=== PATIENT | female | born 1930 | race Caucasian/White ===

== ENCOUNTER 2017-01-02 11:49 | Inpatient (IN) | payer MEDICARE, BC ==
[2017-01-02] MEDS ORDERED: HYDROmorphone 0.5 MG/0.5 ML Syringe IVPUSH ONE (13:32)
[2017-01-02] MEDS ORDERED: Sodium Chloride 0.9% 10 ML Syringe FLUSH PRN (13:32)
--- NOTE | 2017-01-02 13:36 | EDM.PDOC ---
ED HPI LOWER BACK PAIN/INJURY - General Chief Complaint: Back Pain or Injury Stated Complaint: [facility] Time Seen by Provider: 01/02/17 13:33 Source: Reports: Patient History Limitations: Reports: No limitations - History of Present Illness INITIAL COMMENTS - FREE TEXT/NARRATIVE: pt arrived with a hisrory in the past 3 days of increased low back pain and weakness in the leg. She has fallen twice and with the last fall she hit hr knee and she has pain in the knee. Sh has also noted swelling in the left leg and she has tenderness in the left calf. Timing/Duration: Reports: Day(s):, Getting worse Place: home Associated Symptoms: Reports: Difficulty walking - Related Data Allergies/ADRs: Allergies Allergy/AdvReac Type Severity Reaction Status Date / Time Penicillins Allergy Rash Verified 10/11/16 10:03 aspirin AdvReac Nausea and Verified 10/11/16 10:03 Vomiting Home Meds: Home Meds FLUoxetine HCl [Fluoxetine HCl] 20 mg PO DAILY 12/24/13 [History] Gabapentin 300 mg PO BID 12/24/13 [History] Hydrocodone/Acetaminophen [Hydrocodon-Acetaminophn 10-325] 1 tab PO TID [History] Ibuprofen [Advil] 400 mg PO BID PRN 07/22/15 [History] Leflunomide [Arava] 10 mg PO DAILY 09/27/15 [History] tiZANidine [Zanaflex] 4 mg PO Q8HR PRN 09/27/15 [History] Calcium Carbonate [Calcium] 600 mg PO DAILY 03/08/16 [History] Multivitamin [Multi-Vitamin Daily] 1 each PO DAILY 03/08/16 [History] Alendronate Sodium [Alendronate] 70 mg PO WEEKLY 10/25/16 [History] Past Medical History HEENT History: Reports: Cataract Gastrointestinal History: Reports: Colon polyp, Hemorrhoids [employer]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: Musculoskeletal History: Reports: Arthritis, Back pain, chronic, Fracture, Neck pain, chronic, Osteoarthritis, Other (see below) Other Musculoskeletal History: na Neurological History: Reports: None Psychiatric History: Reports: Anxiety Hematologic History: Reports: B12 deficiency, Folic acid Oncologic (Cancer) History: Reports: Basal cell carcinoma Dermatologic History: Reports: Cellulitis - Infectious Disease History Infectious Disease History: Reports: Chicken pox, Measles - Past Surgical History HEENT Surgical History: Reports: Cataract surgery GI Surgical History: Reports: Appendectomy, Colonoscopy, Polypectomy Neurological Surgical History: Reports: Laminectomy Musculoskeletal Surgical History: Reports: None Oncologic Surgical History: Reports: None Dermatological Surgical History: Reports: Skin biopsy Social & Family History - Family History HEENT: Reports: Glaucoma, Macular degeneration Cardiac: Reports: Heart failure, High cholesterol, [place] Respiratory: Reports: Asthma : Reports: Renal disease/insufficiency OBGYN: Reports: Other (see below) Other OBGYN Family History: ovarian cyst Musculoskeletal: Reports: Arthritis Oncologic: Reports: Skin - Tobacco Use Smoking Status *Q: Never Smoker Years of Tobacco use: 30 Used Tobacco, but Quit: Yes Month Tobacco Last Used: 1994 Second Hand Smoke Exposure: No - Caffeine Use Caffeine Use: Reports: Coffee - Alcohol Use Days Per Week of Alcohol Use: 1 Number of Drinks Per Day: 1 Total Drinks Per Week: 1 - Recreational Drug Use Recreational Drug Use: No ED ROS GENERAL - Review of Systems Review Of Systems: See Below Constitutional: Reports: no symptoms HEENT: Reports: No symptoms Respiratory: Reports: No Symptoms Cardiovascular: Reports: No symptoms Endocrine: Reports: no symptoms GI/Abdominal: Reports: No symptoms : Reports: no symptoms Musculoskeletal: Reports: other ( pain and weakness in the left leg. ) Skin: Reports: no symptoms ED EXAM,LOWER BACK PAIN/INJURY - Physical Exam Exam: See Below Text/Narrative:: pt arrived complaining of weakness in the left leg. She alegria a painful knee where she hit it. She has swelling in the left leg. Exam Limited By: No limitations General Appearance: alert, anxious, mild distress Ears: normal TMs Nose: normal inspection Throat/Mouth: Normal inspection Head: atraumatic Neck: normal inspection Respiratory/Chest: no respiratory distress Cardiovascular: regular rate, rhythm GI/Abdominal: soft, non tender (Female) Exam: Deferred Rectal (Female) Exam: Deferred Back Exam: normal inspection Extremities: other (pt is haing problems lifting her left leg. She is able to push against you and his able to lift her foot. She has dfinite swelling in the left leg. She is tender in the calf of the left leg. She has a bruise on the left knee and she is tender in the knee. ) Neurological: alert Psychiatric: normal affect Course - Vital Signs Last Recorded V/S: Last Vital Signs Temp 36.3 C 03/22/17 07:10 Pulse 108 H 01/03/17 07:10 Resp 20 01/03/17 07:10 BP 120/70 01/03/17 07:10 Pulse Ox 96 01/03/17 07:10 - Orders/Labs/Meds Orders: Medication Orders Acetaminophen/Hydrocodone Bitart ([place] 325-5 Mg) 1 tab PO Q4H PRN PRN Reason: Pain (moderate 4-6) Last Admin: 01/02/17 16:19 Dose: 1 tab Acetaminophen/Hydrocodone Bitart ([place] 325-10 Mg) 2 tab PO BEDTIME PRN PRN Reason: Pain Last Admin: 01/02/17 21:26 Dose: 2 tab Dexamethasone (Dexamethasone) 8 mg IVPUSH Q6H RHYS Last Admin: 01/03/17 03:42 Dose: 8 mg Admin: 01/02/17 21:27 Dose: 8 mg Admin: 01/02/17 16:31 Dose: 8 mg Gadoteridol (Prohance) 15 ml IV .A DIRECTED PRN PRN Reason: RADIOLOGY EXAM Stop: 01/03/17 14:44 Last Admin: 01/02/17 15:15 Dose: 15 ml Sodium Chloride (Saline Flush) 10 ml FLUSH ASDIRECTED PRN PRN Reason: Keep Vein Open Last Admin: 01/02/17 14:35 Dose: 10 ml Meds: Medications Generic Name Dose Route Start Last Admin Trade Name Freq PRN Reason Stop Dose Admin Acetaminophen/Hydrocodone Bitart 1 tab 01/02/17 13:37 01/02/17 16:19 [place] 325-5 Mg PO 1 tab Q4H PRN Administration Pain (moderate 4-6) Acetaminophen/Hydrocodone Bitart 2 tab 01/02/17 21:00 01/02/17 21:26 [place] 325-10 Mg PO 2 tab BEDTIME PRN Administration Pain Dexamethasone 8 mg 01/02/17 15:30 01/03/17 03:42 Dexamethasone IVPUSH 8 mg Q6H RHYS Administration Gadoteridol 15 ml 01/02/17 14:43 01/02/17 15:15 Prohance IV 01/03/17 14:44 15 ml .A DIRECTED PRN Administration RADIOLOGY EXAM Sodium Chloride 10 ml 01/02/17 13:32 01/02/17 14:35 Saline Flush FLUSH 10 ml ASDIRECTED PRN Administration Keep Vein Open Discontinued Medications Generic Name Dose Route Start Last Admin Trade Name Conner PRN Reason Stop Dose Admin Hydromorphone HCl 0.5 mg 01/02/17 13:32 01/02/17 14:35 Dilaudid IVPUSH 01/02/17 13:33 0.5 mg ONETIME ONE Administration - Re-Assessments/Exams Free Text/Narrative Re-Assessment/Exam: 01/03/17 07:25 The case was dicussed with Dr Robles Haynes nd he felt that we should get a MRI of the lumbar spine. This was done which did not show sig problems. She had an Us of the leg and there was no dvt present, She had an xray of the left knee did not reveal a fracture. Departure - Departure Time of Disposition: 07:10 Disposition: Admitted As Inpatient 68 Condition: fair Clinical Impression: Left leg weakness
--- NOTE | 2017-01-02 13:55 | CR ---
Knee 3V Lt INDICATION: pain in left knee. FINDINGS: Mild/moderate medial compartment narrowing with tricompartmental hypertrophic change. 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 No acute fracture.
--- NOTE | 2017-01-02 13:55 | PCM.CONS ---
H&P History of Present Illness - General Date of Service: 01/02/17 Admit Problem/Dx: Admission Diagnosis/Problem Admission Diagnosis/Problem Weakness I had the pleasure of being consulted to see Marisela. She is status post laminectomy of L5-S1 from October 17. She noted that over the last few days she has been very week. She notes that she has fallen twice. She comes to the ER today with inability to bear weight on her left leg. She does also noted knee pain in the left knee but noted hitting that on the floor when she fell. She notes most of her pain is in her lower back where it was before her surgery and the pain runs down her left leg. She has no other concerns at this time. Source of Information: Patient History Limitations: Reports: Physical impairment (Left sided leg weakness) - History of Present Illness Onset of Symptoms: Reports: gradual Symptom Onset Date: 12/31/16 Improves with: Reports: None Worsens with: Reports: None Associated Symptoms: Reports: denies other symptoms - Related Data Allergies/Adverse Reactions: Allergies Allergy/AdvReac Type Severity Reaction Status Date / Time Penicillins Allergy Rash Verified 10/11/16 10:03 aspirin AdvReac Nausea and Verified 10/11/16 10:03 Vomiting Home Medications: Home Meds FLUoxetine HCl [Fluoxetine HCl] 20 mg PO DAILY 12/24/13 [History] Gabapentin 300 mg PO BID 12/24/13 [History] Hydrocodone/Acetaminophen [Hydrocodon-Acetaminophn 10-325] 1 tab PO TID [History] Ibuprofen [Advil] 400 mg PO BID PRN 07/22/15 [History] Leflunomide [Arava] 10 mg PO DAILY 09/27/15 [History] tiZANidine [Zanaflex] 4 mg PO Q8HR PRN 09/27/15 [History] Calcium Carbonate [Calcium] 600 mg PO DAILY 03/08/16 [History] Multivitamin [Multi-Vitamin Daily] 1 each PO DAILY 03/08/16 [History] Alendronate Sodium [Alendronate] 70 mg PO WEEKLY 10/25/16 [History] Past Medical History HEENT History: Reports: Cataract Gastrointestinal History: Reports: Colon polyp, Hemorrhoids [employer]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: Musculoskeletal History: Reports: Arthritis, Back pain, chronic, Fracture, Neck pain, chronic, Osteoarthritis, Other (see below) Other Musculoskeletal History: na Neurological History: Reports: None Psychiatric History: Reports: Anxiety Hematologic History: Reports: B12 deficiency, Folic acid Oncologic (Cancer) History: Reports: Basal cell carcinoma Dermatologic History: Reports: Cellulitis - Infectious Disease History Infectious Disease History: Reports: Chicken pox, Measles - Past Surgical History HEENT Surgical History: Reports: Cataract surgery GI Surgical History: Reports: Appendectomy, Colonoscopy, Polypectomy Neurological Surgical History: Reports: Laminectomy Musculoskeletal Surgical History: Reports: None Oncologic Surgical History: Reports: None Dermatological Surgical History: Reports: Skin biopsy Social & Family History - Family History HEENT: Reports: Glaucoma, Macular degeneration Cardiac: Reports: Heart failure, High cholesterol, [place] Respiratory: Reports: Asthma : Reports: Renal disease/insufficiency OBGYN: Reports: Other (see below) Other OBGYN Family History: ovarian cyst Musculoskeletal: Reports: Arthritis Oncologic: Reports: Skin - Tobacco Use Smoking Status *Q: Never Smoker Years of Tobacco use: 30 Used Tobacco, but Quit: Yes Month Tobacco Last Used: 1994 Second Hand Smoke Exposure: No - Caffeine Use Caffeine Use: Reports: Coffee - Alcohol Use Days Per Week of Alcohol Use: 1 Number of Drinks Per Day: 1 Total Drinks Per Week: 1 - Recreational Drug Use Recreational Drug Use: No H&P Review of Systems - Review of Systems: Review Of Systems: See Below General: Reports: no symptoms HEENT: Reports: no symptoms Pulmonary: Reports: No Symptoms Cardiovascular: Reports: no symptoms Gastrointestinal: Reports: No symptoms Genitourinary: Reports: no symptoms Musculoskeletal: Reports: back pain, leg pain Skin: Reports: no symptoms Psychiatric: Reports: no symptoms Neurological: Reports: No Symptoms Hematologic/Lymphatic: Reports: no symptoms Immunologic: Reports: no symptoms Exam - Exam Exam: See Below - Vital Signs Vital Signs: Last Vital Signs Temp 36.8 C 01/02/17 12:09 Pulse 85 01/02/17 12:09 Resp 14 01/02/17 12:09 BP 161/79 H 01/02/17 12:09 Pulse Ox 96 01/02/17 12:09 Weight: 140 lb - Exam General: alert, oriented Extremities: normal inspection, normal pulses, edema (She has +1 edema it the left lower extremity) Peripheral Pulses: 2+: popliteal (L), popliteal (R), dorsalis pedis (L), dorsalis pedis (R) Skin: warm, dry, intact Neurological: cranial nerves intact Neuro Extensive - Mental Status: alert, oriented x3 Psychiatric: alert, normal affect, normal mood Consult PN Assessment/Plan Procedures: Procedures ASSAY OF CREATININE (04/30/15) ASSAY OF LACTIC ACID (09/27/15) ASSAY OF LIPASE (12/24/13) ASSAY OF MAGNESIUM (09/27/15) ASSAY OF TROPONIN QUANT (12/24/13) BLOOD CULTURE FOR BACTERIA (09/27/15) BLOOD TYPING SEROLOGIC ABO (10/02/16) BLOOD TYPING SEROLOGIC RH(D) (10/02/16) C-REACTIVE PROTEIN (09/27/15) CHEST X-RAY 2VW FRONTAL&LATL (10/02/16) COMP SCREEN MAMMOGRAM ADD-ON (12/12/13) COMPLETE CBC AUTOMATED (10/02/16) COMPLETE CBC W/AUTO DIFF WBC (10/25/16) COMPREHEN METABOLIC PANEL (10/02/16) CT ABD & PELV W/CONTRAST (12/24/13) CT HEAD/BRAIN W/O DYE (12/01/13) CT LUMBAR SPINE W/O DYE (10/25/16) CT PELVIS W/O DYE (01/12/16) CULTURE AEROBIC IDENTIFY (12/24/13) CULTURE OTHR SPECIMN AEROBIC (10/12/16) ELECTROCARDIOGRAM TRACING (10/02/16) EMERGENCY DEPT VISIT (12/07/15) EMERGENCY DEPT VISIT (09/27/15) EMERGENCY DEPT VISIT (09/27/15) EMERGENCY DEPT VISIT (07/22/15) EMERGENCY DEPT VISIT (12/24/13) FLUOROSCOPE EXAM EXTENSIVE (10/25/16) HYDRATE IV INFUSION ADD-ON (12/24/13) INJECT SPINE LUMBAR/SACRAL (10/11/16) INJECT TRIGGER POINTS 3/> (10/11/16) LOWER EXTREMITY STUDY (10/12/15) MANUAL THERAPY 1/> REGIONS (11/23/16) METABOLIC PANEL TOTAL CA (10/25/16) MICROBE SUSCEPTIBLE MELLISA (09/27/15) MRI BRAIN STEM W/O & W/DYE (04/30/15) MRI JNT OF LWR EXTRE W/O DYE (12/20/15) MRI JOINT UPR EXTREM W/O DYE (04/06/14) MRI LUMBAR SPINE W/O DYE (01/24/16) OT EVAL LOW COMPLEX 30 MIN (10/25/16) POSTOP FOLLOW-UP VISIT (11/06/16) PT EVAL LOW COMPLEX 20 MIN (11/13/16) PT EVAL MOD COMPLEX 30 MIN (10/25/16) PT EVALUATION (10/04/16) RBC ANTIBODY SCREEN (10/02/16) REMOVE SPINAL LAMINA ADD-ON (10/25/16) REMOVE SPINE LAMINA 1 LMBR (10/25/16) ROUTINE VENIPUNCTURE (10/25/16) SELF CARE MNGMENT TRAINING (10/25/16) THER/PROPH/DIAG INJ IV PUSH (09/27/15) THER/PROPH/DIAG INJ SC/IM (12/07/15) THERAPEUTIC ACTIVITIES (10/25/16) THERAPEUTIC EXERCISES (11/23/16) URINALYSIS AUTO W/SCOPE (09/27/15) URINE BACTERIA CULTURE (09/27/15) URINE CULTURE/COLONY COUNT (09/27/15) X-RAY EXAM HIP UNI 2-3 VIEWS (12/07/15) X-RAY EXAM L-2 SPINE 4/>VWS (10/02/16) (1) Status post lumbar laminectomy SNOMED Code(s): 75231243119920284, 902340603, 59260168695102398 Code(s): Z98.890 - OTHER SPECIFIED POSTPROCEDURAL STATES Current Visit: Yes (2) Weakness SNOMED Code(s): 56103748 Code(s): R53.1 - WEAKNESS Current Visit: Yes (3) Ataxia SNOMED Code(s): 59180165 Code(s): R27.0 - ATAXIA, UNSPECIFIED Current Visit: Yes Problem List Initiated/Reviewed/Updated: Yes My Orders last 24 hours: My Active Orders 01/02/17 13:26 Patient Status [ADT] Routine Oxygen Therapy [RC] PRN Up ad Idania [RC] ASDIRECTED VTE/DVT Education [RC] Per Unit Routine Vital Signs [RC] Q4H Resuscitation Status Routine 01/02/17 13:34 Sequential Compression Device [OM.PC] Per Unit Routine 01/02/17 13:37 Acetaminophen/HYDROcodone [[place] 325-5 MG] 1 tab PO Q4H PRN 01/02/17 13:39 Lumbar Spine Comp w wo Cont [MR] Stat 01/02/17 13:40 Consult to Physician [CONS] Routine OT Evaluation and Treatment [CONS] Routine PT Evaluation and Treatment [CONS] Routine 01/02/17 13:42 Notify Provider Consults [RC] ASDIRECTED 01/02/17 Dinner Regular Diet [DIET] Plan: At this time we will admit Marisela to the Med Surg floor. She is having an MRI done now. We will have her observed due to weakness. I will consult the hospitalist for medication management. We will have PT/OT evaluate and treat. We will also administer norco 5/325 1 tab q 4 hrs as needed for pain management.
--- NOTE | 2017-01-02 14:09 | US ---
VL Duplex Lwr Ext Veins Ltd Lt INDICATION: swelling post op FINDINGS: Ultrasound examination of the left lower extremity using Doppler and compressive technique demonstrates that the common femoral, femoral, and popliteal veins are patent, and negative for thr ombus. The calf veins were segmentally visualized and are negative where seen. IMPRESSION: Negative for deep venous thrombosis.
[2017-01-02] MEDS: Gadoteridol 279.3 MG/ML 15 ML SDV IV PRN (15:15)
[2017-01-02] MEDS: Acetaminophen/HYDROcodone 325-5 MG Tab PO PRN (16:19)
[2017-01-02] MEDS: Dexamethasone 4 MG/ML SDV IVPUSH SCH ×2 (16:31→21:27)
--- NOTE | 2017-01-02 18:20 | PCM.CONS ---
H&P History of Present Illness - General Date of Service: 01/02/17 Source of Information: Patient, Old records, Provider, RN notes reviewed History Limitations: Reports: No limitations - History of Present Illness Initial Comments - Free Text/Narative: Ms. Velazquez is an 86-year-old woman who I been asked to see by Dr. Florentino Haynes for a hospitalist consult and assistance in medical management during her hospitalization. She is status post lumbar laminectomy done in October of this year. She did well until 4 days prior to admission when she began to develop weakness in her left leg to the point now where she's had significant difficulty ambulating. She was seen and evaluated by Dr. Haynes in the emergency department and has been admitted for further evaluation. MRI has been obtained of the lumbar spine but formal report is pending. She is otherwise fairly healthy with only minimal history of past medical problems. - Related Data Allergies/Adverse Reactions: Allergies Allergy/AdvReac Type Severity Reaction Status Date / Time Penicillins Allergy Rash Verified 10/11/16 10:03 aspirin AdvReac Nausea and Verified 10/11/16 10:03 Vomiting Home Medications: Home Meds FLUoxetine HCl [Fluoxetine HCl] 20 mg PO DAILY 12/24/13 [History] Gabapentin 300 mg PO BID 12/24/13 [History] Hydrocodone/Acetaminophen [Hydrocodon-Acetaminophn 10-325] 1 tab PO TID [History] Ibuprofen [Advil] 400 mg PO BID PRN 07/22/15 [History] Leflunomide [Arava] 10 mg PO DAILY 09/27/15 [History] tiZANidine [Zanaflex] 4 mg PO Q8HR PRN 09/27/15 [History] Calcium Carbonate [Calcium] 600 mg PO DAILY 03/08/16 [History] Multivitamin [Multi-Vitamin Daily] 1 each PO DAILY 03/08/16 [History] Alendronate Sodium [Alendronate] 70 mg PO WEEKLY 10/25/16 [History] Past Medical History HEENT History: Reports: Cataract Gastrointestinal History: Reports: Colon polyp, Hemorrhoids [employer]ENT[employer] History: Reports: Musculoskeletal History: Reports: Arthritis, Back pain, chronic, Fracture, Neck pain, chronic, Osteoarthritis, Other (see below) Other Musculoskeletal History: na Neurological History: Reports: None Psychiatric History: Reports: Anxiety Hematologic History: Reports: B12 deficiency, Folic acid Oncologic (Cancer) History: Reports: Basal cell carcinoma Dermatologic History: Reports: Cellulitis - Infectious Disease History Infectious Disease History: Reports: Chicken pox, Measles - Past Surgical History HEENT Surgical History: Reports: Cataract surgery GI Surgical History: Reports: Appendectomy, Colonoscopy, Polypectomy Neurological Surgical History: Reports: Laminectomy Musculoskeletal Surgical History: Reports: None Oncologic Surgical History: Reports: None Dermatological Surgical History: Reports: Skin biopsy Social & Family History - Family History HEENT: Reports: Glaucoma, Macular degeneration Cardiac: Reports: Heart failure, High cholesterol, ID Respiratory: Reports: Asthma : Reports: Renal disease/insufficiency OBGYN: Reports: Other (see below) Other OBGYN Family History: ovarian cyst Musculoskeletal: Reports: Arthritis Oncologic: Reports: Skin - Tobacco Use Smoking Status *Q: Former Smoker Years of Tobacco use: 30 Used Tobacco, but Quit: Yes Month Tobacco Last Used: 1994 Second Hand Smoke Exposure: No - Caffeine Use Caffeine Use: Reports: Coffee - Alcohol Use Days Per Week of Alcohol Use: 1 Number of Drinks Per Day: 1 Total Drinks Per Week: 1 - Recreational Drug Use Recreational Drug Use: No H&P Review of Systems - Review of Systems: Review Of Systems: See Below General: Reports: weakness. Denies: fever, chills, night sweats, diaphoresis, decreased appetite HEENT: Reports: no symptoms Pulmonary: Reports: No Symptoms Cardiovascular: Reports: no symptoms Gastrointestinal: Reports: No symptoms Genitourinary: Reports: no symptoms Musculoskeletal: Reports: other (Left knee pain) Skin: Reports: no symptoms Psychiatric: Reports: no symptoms Neurological: Reports: Difficulty Walking, Weakness Hematologic/Lymphatic: Reports: no symptoms Immunologic: Reports: no symptoms Exam - Exam Exam: See Below - Vital Signs Vital Signs: Last Vital Signs Temp 98.2 F 01/02/17 12:09 Pulse 85 01/02/17 12:09 Resp 14 01/02/17 12:09 BP 161/79 H 01/02/17 12:09 Pulse Ox 96 01/02/17 12:09 Weight: 145 lb 11.609 oz - Exam Quality Assessment: DVT prophylaxis General: alert, oriented, cooperative, mild distress Neck: supple, trachea midline, 2 Lungs: Clear to auscultation, Normal respiratory effort Cardiovascular: regular rate, regular rhythm, normal S1, normal S2. No: systolic murmur, diastolic murmur Abdomen: normal bowel sounds, soft Back Exam: vertebral tenderness Extremities: normal inspection, normal pulses. No: cyanosis, calf tenderness, cool, edema, increased warmth Skin: warm, dry, intact Neurological: other (Weakness left lower extremity) - Patient Data Lab Results last 24 hrs: Laboratory Results - last 24 hr 01/02/17 01/02/17 Range/Units 14:20 14:21 WBC 9.6 (4.5-11.0) K/uL RBC 4.13 (3.30-5.50) M/uL Hgb 12.5 (12.0-15.0) g/dL Hct 39.2 (36.0-48.0) % MCV 95 (80-98) fL MCH 30 (27-31) pg MCHC 32 (32-36) % Plt Count 287 (150-400) K/uL Neut % (Auto) 74 H (36-66) % Lymph % (Auto) 16 L (24-44) % [place] % (Auto) 9 H (2-6) % Eos % (Auto) 1 L (2-4) % Baso % (Auto) 1 (0-1) % Sodium 143 (140-148) mmol/L Potassium 3.8 (3.6-5.2) mmol/L Chloride 107 (100-108) mmol/L Carbon Dioxide 26 (21-32) mmol/L Anion Gap 9.6 (5.0-14.0) mmol/L BUN 11 (7-18) mg/dL Creatinine 0.7 (0.5-1.0) mg/dL Est Cr Clr Drug Dosing 58.18 mL/min Estimated GFR (MDRD) > 60 (>60) BUN/Creatinine Ratio Not Reportable Glucose 95 (74-106) mg/dL Calcium 8.8 (8.5-10.1) mg/dL Total Bilirubin 0.3 (0.2-1.0) mg/dL AST 22 (15-37) U/L ALT 22 (12-78) U/L Alkaline Phosphatase 37 L (46-116) U/L Total Protein 6.3 L (6.4-8.2) g/dL Albumin 3.3 L (3.4-5.0) g/dL Globulin 3.0 (2.3-3.5) g/dL Albumin/Globulin Ratio 1.1 L (1.2-2.2) Result Diagrams: 01/02/17 14:20 01/02/17 14:21 Consult PN Assessment/Plan Procedures: Procedures ASSAY OF CREATININE (04/30/15) ASSAY OF LACTIC ACID (09/27/15) ASSAY OF LIPASE (12/24/13) ASSAY OF MAGNESIUM (09/27/15) ASSAY OF TROPONIN QUANT (12/24/13) BLOOD CULTURE FOR BACTERIA (09/27/15) BLOOD TYPING SEROLOGIC ABO (10/02/16) BLOOD TYPING SEROLOGIC RH(D) (10/02/16) C-REACTIVE PROTEIN (09/27/15) CHEST X-RAY 2VW FRONTAL&LATL (10/02/16) COMP SCREEN MAMMOGRAM ADD-ON (12/12/13) COMPLETE CBC AUTOMATED (10/02/16) COMPLETE CBC W/AUTO DIFF WBC (10/25/16) COMPREHEN METABOLIC PANEL (10/02/16) CT ABD & PELV W/CONTRAST (12/24/13) CT HEAD/BRAIN W/O DYE (12/01/13) CT LUMBAR SPINE W/O DYE (10/25/16) CT PELVIS W/O DYE (01/12/16) CULTURE AEROBIC IDENTIFY (12/24/13) CULTURE OTHR SPECIMN AEROBIC (10/12/16) ELECTROCARDIOGRAM TRACING (10/02/16) EMERGENCY DEPT VISIT (12/07/15) EMERGENCY DEPT VISIT (09/27/15) EMERGENCY DEPT VISIT (09/27/15) EMERGENCY DEPT VISIT (07/22/15) EMERGENCY DEPT VISIT (12/24/13) FLUOROSCOPE EXAM EXTENSIVE (10/25/16) HYDRATE IV INFUSION ADD-ON (12/24/13) INJECT SPINE LUMBAR/SACRAL (10/11/16) INJECT TRIGGER POINTS 3/> (10/11/16) LOWER EXTREMITY STUDY (10/12/15) MANUAL THERAPY 1/> REGIONS (11/23/16) METABOLIC PANEL TOTAL CA (10/25/16) MICROBE SUSCEPTIBLE MELLISA (09/27/15) MRI BRAIN STEM W/O & W/DYE (04/30/15) MRI JNT OF LWR EXTRE W/O DYE (12/20/15) MRI JOINT UPR EXTREM W/O DYE (06/23/14) MRI LUMBAR SPINE W/O DYE (01/24/16) OT EVAL LOW COMPLEX 30 MIN (10/25/16) POSTOP FOLLOW-UP VISIT (11/06/16) PT EVAL LOW COMPLEX 20 MIN (11/13/16) PT EVAL MOD COMPLEX 30 MIN (10/25/16) PT EVALUATION (10/04/16) RBC ANTIBODY SCREEN (10/02/16) REMOVE SPINAL LAMINA ADD-ON (10/25/16) REMOVE SPINE LAMINA 1 LMBR (10/25/16) ROUTINE VENIPUNCTURE (10/25/16) SELF CARE MNGMENT TRAINING (10/25/16) THER/PROPH/DIAG INJ IV PUSH (09/27/15) THER/PROPH/DIAG INJ SC/IM (12/07/15) THERAPEUTIC ACTIVITIES (10/25/16) THERAPEUTIC EXERCISES (11/23/16) URINALYSIS AUTO W/SCOPE (09/27/15) URINE BACTERIA CULTURE (09/27/15) URINE CULTURE/COLONY COUNT (09/27/15) X-RAY EXAM HIP UNI 2-3 VIEWS (12/07/15) X-RAY EXAM L-2 SPINE 4/>VWS (10/02/16) Problem List Initiated/Reviewed/Updated: Yes Plan: ASSESSMENT AND RECOMMENDATIONS LEFT LEG WEAKNESS-she's done well following lumbar laminectomy in October, now over the past 4 days his developed significant leg weakness with a left foot drop. This has caused significant difficulty with ambulation and falls with injury to her left knee and laceration of her elbow. -MRI results pending -Management per Dr. Semaj Haynes OTHERWISE RELATIVELY HEALTHY 86-YEAR-OLD WOMAN -We'll follow and monitor during hospitalization for any developing medical problems Requesting Provider: POLINA Date Consult Requested: 01/02/17 Reason for Consult: left lower extremity weakness Patient History Reviewed: Yes Admission H&P Reviewed: Yes
[2017-01-02] MEDS: Acetaminophen/HYDROcodone 325-10 MG Tab PO PRN (21:26)
[2017-01-03] MEDS: Dexamethasone 4 MG/ML SDV IVPUSH SCH ×4 (03:42→20:30)
--- NOTE | 2017-01-03 13:01 | PCM.CONSN ---
- General Info Date of Service: 01/03/17 - Review of Systems General: Reports: No Symptoms Pulmonary: Reports: no symptoms Cardiovascular: Reports: No Symptoms Gastrointestinal: Reports: No symptoms Neurological: Reports: Difficulty Walking, Weakness (Left leg) Systems Review Comment:: This patient was admitted yesterday because of left leg weakness, MRI of the lumbar spine shows no evidence of significant spinal cord or nerve root impingement. Leg weakness has modestly improved over the past 24 hours and she has been able to walk short distances. Vital signs have been stable and she has remained afebrile. - Patient Data Vitals - most recent: Last Vital Signs Temp 96.9 F 01/03/17 10:58 Pulse 106 H 01/03/17 10:58 Resp 18 01/03/17 10:58 BP 148/81 H 01/03/17 10:58 Pulse Ox 97 01/03/17 10:58 Weight - most recent: 145 lb 11.609 oz I&O - last 24 hours: Intake & Output 01/02/17 01/03/17 01/03/17 22:59 06:59 14:59 Intake Total 240 360 Output Total 800 175 700 Balance -800 65 -340 Lab Results last 24 hrs: Laboratory Results - last 24 hr 01/02/17 01/02/17 Range/Units 14:20 14:21 WBC 9.6 (4.5-11.0) K/uL RBC 4.13 (3.30-5.50) M/uL Hgb 12.5 (12.0-15.0) g/dL Hct 39.2 (36.0-48.0) % MCV 95 (80-98) fL MCH 30 (27-31) pg MCHC 32 (32-36) % Plt Count 287 (150-400) K/uL Neut % (Auto) 74 H (36-66) % Lymph % (Auto) 16 L (24-44) % [place] % (Auto) 9 H (2-6) % Eos % (Auto) 1 L (2-4) % Baso % (Auto) 1 (0-1) % Sodium 143 (140-148) mmol/L Potassium 3.8 (3.6-5.2) mmol/L Chloride 107 (100-108) mmol/L Carbon Dioxide 26 (21-32) mmol/L Anion Gap 9.6 (5.0-14.0) mmol/L BUN 11 (7-18) mg/dL Creatinine 0.7 (0.5-1.0) mg/dL Est Cr Clr Drug Dosing 58.18 mL/min Estimated GFR (MDRD) > 60 (>60) BUN/Creatinine Ratio Not Reportable Glucose 95 (74-106) mg/dL Calcium 8.8 (8.5-10.1) mg/dL Total Bilirubin 0.3 (0.2-1.0) mg/dL AST 22 (15-37) U/L ALT 22 (12-78) U/L Alkaline Phosphatase 37 L (46-116) U/L Total Protein 6.3 L (6.4-8.2) g/dL Albumin 3.3 L (3.4-5.0) g/dL Globulin 3.0 (2.3-3.5) g/dL Albumin/Globulin Ratio 1.1 L (1.2-2.2) Med Orders - Current: Current Medications Acetaminophen/Hydrocodone Bitart ([place] 325-5 Mg) 1 tab PO Q4H PRN PRN Reason: Pain (moderate 4-6) Last Admin: 01/02/17 16:19 Dose: 1 tab Acetaminophen/Hydrocodone Bitart ([place] 325-10 Mg) 2 tab PO BEDTIME PRN PRN Reason: Pain Last Admin: 01/02/17 21:26 Dose: 2 tab Dexamethasone (Dexamethasone) 8 mg IVPUSH Q6H RHYS Last Admin: 01/03/17 09:20 Dose: 8 mg Gadoteridol (Prohance) 15 ml IV .A DIRECTED PRN PRN Reason: RADIOLOGY EXAM Stop: 01/03/17 14:44 Last Admin: 01/02/17 15:15 Dose: 15 ml Sodium Chloride (Saline Flush) 10 ml FLUSH ASDIRECTED PRN PRN Reason: Keep Vein Open Last Admin: 01/02/17 14:35 Dose: 10 ml Discontinued Medications Hydromorphone HCl (Dilaudid) 0.5 mg IVPUSH ONETIME ONE Stop: 01/02/17 13:33 Last Admin: 01/02/17 14:35 Dose: 0.5 mg - Exam General: alert, oriented, cooperative, mild distress Lungs: Clear to auscultation, Normal respiratory effort Cardiovascular: Regular Rate, Regular Rhythm, No Murmurs Abdomen: bowel sounds present, soft, no tenderness, no distension Extremities: no edema Skin: warm, dry, intact Neurological: other (Weakness left leg and foot) Consult PN Assessment/Plan Procedures: Procedures ASSAY OF CREATININE (04/30/15) ASSAY OF LACTIC ACID (09/27/15) ASSAY OF LIPASE (12/24/13) ASSAY OF MAGNESIUM (09/27/15) ASSAY OF TROPONIN QUANT (12/24/13) BLOOD CULTURE FOR BACTERIA (09/27/15) BLOOD TYPING SEROLOGIC ABO (10/02/16) BLOOD TYPING SEROLOGIC RH(D) (10/02/16) C-REACTIVE PROTEIN (09/27/15) CHEST X-RAY 2VW FRONTAL&LATL (10/02/16) COMP SCREEN MAMMOGRAM ADD-ON (12/12/13) COMPLETE CBC AUTOMATED (10/02/16) COMPLETE CBC W/AUTO DIFF WBC (10/25/16) COMPREHEN METABOLIC PANEL (10/02/16) CT ABD & PELV W/CONTRAST (12/24/13) CT HEAD/BRAIN W/O DYE (12/01/13) CT LUMBAR SPINE W/O DYE (10/25/16) CT PELVIS W/O DYE (01/12/16) CULTURE AEROBIC IDENTIFY (12/24/13) CULTURE OTHR SPECIMN AEROBIC (10/12/16) ELECTROCARDIOGRAM TRACING (10/02/16) EMERGENCY DEPT VISIT (12/07/15) EMERGENCY DEPT VISIT (09/27/15) EMERGENCY DEPT VISIT (09/27/15) EMERGENCY DEPT VISIT (07/22/15) EMERGENCY DEPT VISIT (12/24/13) FLUOROSCOPE EXAM EXTENSIVE (10/25/16) HYDRATE IV INFUSION ADD-ON (12/24/13) INJECT SPINE LUMBAR/SACRAL (10/11/16) INJECT TRIGGER POINTS 3/> (10/11/16) LOWER EXTREMITY STUDY (10/12/15) MANUAL THERAPY 1/> REGIONS (11/23/16) METABOLIC PANEL TOTAL CA (10/25/16) MICROBE SUSCEPTIBLE MELLISA (09/27/15) MRI BRAIN STEM W/O & W/DYE (04/30/15) MRI JNT OF LWR EXTRE W/O DYE (12/20/15) MRI JOINT UPR EXTREM W/O DYE (04/06/14) MRI LUMBAR SPINE W/O DYE (01/24/16) OT EVAL LOW COMPLEX 30 MIN (10/25/16) POSTOP FOLLOW-UP VISIT (11/06/16) PT EVAL LOW COMPLEX 20 MIN (11/13/16) PT EVAL MOD COMPLEX 30 MIN (10/25/16) PT EVALUATION (10/04/16) RBC ANTIBODY SCREEN (10/02/16) REMOVE SPINAL LAMINA ADD-ON (10/25/16) REMOVE SPINE LAMINA 1 LMBR (10/25/16) ROUTINE VENIPUNCTURE (10/25/16) SELF CARE MNGMENT TRAINING (10/25/16) THER/PROPH/DIAG INJ IV PUSH (09/27/15) THER/PROPH/DIAG INJ SC/IM (12/07/15) THERAPEUTIC ACTIVITIES (10/25/16) THERAPEUTIC EXERCISES (11/23/16) URINALYSIS AUTO W/SCOPE (09/27/15) URINE BACTERIA CULTURE (09/27/15) URINE CULTURE/COLONY COUNT (09/27/15) X-RAY EXAM HIP UNI 2-3 VIEWS (12/07/15) X-RAY EXAM L-2 SPINE 4/>VWS (10/02/16) Problem List Initiated/Reviewed/Updated: Yes My Orders last 24 hours: My Active Orders 01/02/17 21:00 Acetaminophen/HYDROcodone [[place] 325-10 MG] 2 tab PO BEDTIME PRN 01/03/17 12:30 Brain w wo Cont [MR] Urgent Plan: ASSESSMENT AND RECOMMENDATIONS LEFT LEG WEAKNESS-she's done well following lumbar laminectomy in October, now over the past 4 days his developed significant leg weakness with a left foot drop. This has caused significant difficulty with ambulation and falls with injury to her left knee and laceration of her elbow. MRI of the lumbar spine showed no evidence of spinal cord or nerve root impingement. -MRI MRI of the brain with and without contrast rule out central cause of her weakness. -Management per Dr. Semaj Haynes OTHERWISE RELATIVELY HEALTHY 86-YEAR-OLD WOMAN -We'll follow and monitor during hospitalization for any developing medical problems
[2017-01-03] MEDS: Gadoteridol 279.3 MG/ML 15 ML SDV IV PRN (13:45)
[2017-01-03] MEDS ORDERED: Gadoteridol 279.3 MG/ML 15 ML SDV IV PRN (13:55)
--- NOTE | 2017-01-03 14:15 | MR ---
Brain w wo Cont INDICATION: Left leg weakness COMPARISON: None. FINDINGS: Mild scattered foci of T2 hyperintensity in the periventricular and subcortical deep white matter that are nonspecific, the largest adjacent to the atrium of the right lateral ventricle cedrick uring 14 mm. No corresponding restricted diffusion or abnormal enhancement. Mild mucosal thickening maxillary sinuses. Trace fluid in the right mastoid air cells. Exam otherwise negative. IMPRESSION: Nonspecific white matter changes. Exam otherwise negative.
[2017-01-03] MEDS ORDERED: Bacitracin Oint 1 GM U/D Packet TOP ONE (15:28)
[2017-01-03] MEDS ORDERED: Aluminum Hydroxide/Magnesium Hydroxide/Simethicone Susp 30 ML Cup PO PRN (18:17)
[2017-01-03] MEDS: Acetaminophen/HYDROcodone 325-10 MG Tab PO PRN (20:27)
[2017-01-04] MEDS: Dexamethasone 4 MG/ML SDV IVPUSH SCH ×2 (03:11→09:23)
[2017-01-04] MEDS: Acetaminophen/HYDROcodone 325-5 MG Tab PO PRN (08:39)
[2017-01-04 11:01] VITALS: BP 160/72
--- NOTE | 2017-01-04 14:07 | PCM.DCSUM1 ---
Discharge Summary - Hospital Course Free Text/Narrative:: Marisela is a 86 year old female who was admitted yesterday due to weakness and low back pain. She was seen by PT for the last two days. She is feeling stronger and is having minimal pain. She is having some knee pain and is having some pain in the left knee still. She has no other concerns at this time and is admits that she wants to go home and that she has lots of help. Plan: At this time I am going to discharge Marisela to home per her request. I did inform her that we will do home PT. I want her to follow up as needed. - Discharge Data Discharge Date: 01/04/17 Discharge Disposition: Home, W Home Health Agency Condition: Good - Discharge Diagnosis/Problem(s) (1) Status post lumbar laminectomy SNOMED Code(s): 74588090082837384, [id number], [id number] ICD Code: Z98.890 - OTHER SPECIFIED POSTPROCEDURAL STATES Status: Acute Current Visit: Yes (2) Weakness SNOMED Code(s): 46506393 ICD Code: R53.1 - WEAKNESS Status: Acute Current Visit: Yes (3) Ataxia SNOMED Code(s): 76087313 ICD Code: R27.0 - ATAXIA, UNSPECIFIED Status: Acute Current Visit: Yes - Patient Summary/Data Consults: Consultations 01/02/17 13:40 Consult to Physician [CONS] Routine Consulting Provider: Arturo Bower Call Completed to Consulting Physician: Yes OT Evaluation and Treatment [CONS] Routine Please Evaluate and Treat. OT Reason for Consult: Strengthening This query below is only for informational purposes and is not editable. Admission Diagnosis/Problem: Weakness PT Evaluation and Treatment [CONS] Routine Please Evaluate and Treat. PT Reason for Consult: Strengthening This query below is only for informational purposes and is not editable. Admission Diagnosis/Problem: Weakness - Discharge Plan Home Medications: Home Meds FLUoxetine HCl [Fluoxetine HCl] 20 mg PO DAILY 12/24/13 [History] Gabapentin 300 mg PO BID 12/24/13 [History] Hydrocodone/Acetaminophen [Hydrocodon-Acetaminophn 10-325] 1 tab PO TID [History] Ibuprofen [Advil] 400 mg PO BID PRN 07/22/15 [History] Leflunomide [Arava] 10 mg PO DAILY 09/27/15 [History] tiZANidine [Zanaflex] 4 mg PO Q8HR PRN 09/27/15 [History] Calcium Carbonate [Calcium] 600 mg PO DAILY 03/08/16 [History] Multivitamin [Multi-Vitamin Daily] 1 each PO DAILY 03/08/16 [History] Alendronate Sodium [Alendronate] 70 mg PO WEEKLY 10/25/16 [History] Forms: ED Department Discharge Referrals: Leo Valverde MD [Primary Care Provider] - - General Info Date of Service: 01/04/17 Functional Status: Reports: pain controlled, tolerating diet, ambulating - Review of Systems General: Reports: No Symptoms HEENT: Reports: no symptoms Pulmonary: Reports: no symptoms Cardiovascular: Reports: No Symptoms Gastrointestinal: Reports: No symptoms Genitourinary: Reports: no symptoms Musculoskeletal: Reports: joint pain (left knee pain) Skin: Reports: no symptoms Neurological: Reports: No Symptoms Psychiatric: Reports: no symptoms - Patient Data Vitals - Most Recent: Last Vital Signs Temp 36.3 C 01/04/17 11:00 Pulse 70 01/04/17 11:00 Resp 18 01/04/17 11:00 BP 160/72 H 01/04/17 11:00 Pulse Ox 96 01/04/17 11:00 Weight - Most Recent: 145 lb 11.609 oz I&O - Last 24 hours: Intake & Output 01/03/17 01/04/17 01/04/17 22:59 06:59 14:59 Intake Total 200 360 Output Total 300 Balance 200 60 Med Orders - Current: Current Medications Acetaminophen/Hydrocodone Bitart ([place] 325-5 Mg) 1 tab PO Q4H PRN PRN Reason: Pain (moderate 4-6) Last Admin: 01/04/17 08:39 Dose: 1 tab Acetaminophen/Hydrocodone Bitart ([place] 325-10 Mg) 2 tab PO BEDTIME PRN PRN Reason: Pain Last Admin: 01/03/17 20:27 Dose: 2 tab Al Hydroxide/Mg Hydroxide (Mag-Al Plus) 30 ml PO Q4H PRN PRN Reason: Dyspepsia Last Admin: 01/03/17 18:27 Dose: 30 ml Dexamethasone (Dexamethasone) 8 mg IVPUSH Q6H RHYS Last Admin: 01/04/17 09:23 Dose: 8 mg Sodium Chloride (Saline Flush) 10 ml FLUSH ASDIRECTED PRN PRN Reason: Keep Vein Open Last Admin: 01/02/17 14:35 Dose: 10 ml Discontinued Medications Bacitracin (Bacitracin Oint 1 Gm) 1 dose TOP ONETIME ONE Stop: 01/03/17 15:29 Last Admin: 01/03/17 15:44 Dose: 1 dose Gadoteridol (Prohance) 15 ml IV .A DIRECTED PRN PRN Reason: RADIOLOGY EXAM Stop: 01/03/17 14:44 Last Admin: 01/03/17 13:45 Dose: 15 ml Gadoteridol (Prohance) 15 ml IV . DIRECTED PRN PRN Reason: RADIOLOGY EXAM Stop: 01/03/17 13:56 Last Admin: 01/03/17 13:59 Dose: 13 ml Hydromorphone HCl (Dilaudid) 0.5 mg IVPUSH ONETIME ONE Stop: 01/02/17 13:33 Last Admin: 01/02/17 14:35 Dose: 0.5 mg - Exam General: Reports: alert, oriented Extremities: Reports: no edema, normal pulses, no tenderness/swelling Skin: Reports: warm, dry, intact *Q Meaningful Use (DIS) - VTE *Q VTE Criteria *Q: - Stroke *Q Stroke Criteria *Q: - AMI *Q AMI Criteria *Q:
== END 2017-01-04 15:40 | disposition home health service (06) | DRG 556 ==
LOC: JP.ED 11:49 → JP.ICU 13:26 → JP.MS 18:10
PROVIDERS: ADMIT Orthopaedic Surgery; ATTEND Orthopaedic Surgery
DX: M62.81 Muscle weakness (generalized) (principal); M21.372 Foot drop, left foot; M54.5 Low back pain; R27.0 Ataxia, unspecified; M25.561 Pain in right knee; M25.562 Pain in left knee; Z98.890 Other specified postprocedural states; R53.1 Weakness; M19.90 Unspecified osteoarthritis, unspecified site; G89.29 Other chronic pain; F41.9 Anxiety disorder, unspecified; Z87.891 Personal history of nicotine dependence; R29.6 Repeated falls
CPT/HCPCS: 36415; 70553; 70553-26; 72158; 73562-26-LT; 73562-LT; 80053; 85025; 93971-26-LT; 93971-LT; 96374; 97110-GO; 97110-GP; 97116-GP; 97162-GP; 97165-GO; 97530-GP; 99285; 99285-25; A9270-GY; A9576; J1100; J1170; J7050

== ENCOUNTER 2017-01-24 11:48 | Emergency (ER) | payer MEDICARE, BC ==
[2017-01-24 12:21] VITALS: BP 158/67
--- NOTE | 2017-01-24 12:57 | EDM.PDOC ---
ED HPI Trauma - General Chief Complaint: Lower Extremity Injury/Pain Stated Complaint: LT KNEE PAIN/GIVES OUT Time Seen by Provider: 01/24/17 12:54 Source: Reports: Patient History Limitations: Reports: No limitations - History of Present Illness INITIAL COMMENTS - FREE TEXT/NARRATIVE: Pt fell about 2 weeks ago and landed on her left knee. She came to the ER and had xrays. She had marked degenerative changes but did not have a acute fracture. Occurred When: other ( the fall occured 2 weeks ago, ) Occurred Where: home Method of Injury: fall Severity: moderate Pain/Injury Location: Reports: lower extremity, left, other (pt fell 2 weeks ago and she has very persistent pain in the knee. She already had plain films of the knee which did not reveal fractures. ) Consciousness: Reports: remembers incident Associated Symptoms: Reports: denies other symptoms Allergies/ADRs: Allergies Penicillins Allergy (Verified 10/11/16 10:03) Rash aspirin Adverse Reaction (Verified 10/11/16 10:03) Nausea and Vomiting Home Medications: Ambulatory Orders FLUoxetine HCl [Fluoxetine HCl] 20 mg PO DAILY 12/24/13 [Confirmed 01/02/17] Gabapentin 300 mg PO BID 12/24/13 [Confirmed 01/02/17] Hydrocodone/Acetaminophen [Hydrocodon-Acetaminophn 10-325] 1 tab PO TID [Confirmed 01/02/17] Ibuprofen [Advil] 400 mg PO BID PRN 07/22/15 [Confirmed 01/02/17] Leflunomide [Arava] 10 mg PO DAILY 09/27/15 [Confirmed 01/02/17] tiZANidine [Zanaflex] 4 mg PO Q8HR PRN 09/27/15 [Confirmed 01/02/17] Calcium Carbonate [Calcium] 600 mg PO DAILY 03/08/16 [Confirmed 01/02/17] Multivitamin [Multi-Vitamin Daily] 1 each PO DAILY 03/08/16 [Confirmed 01/02/17] Alendronate Sodium [Alendronate] 70 mg PO WEEKLY 10/25/16 [Confirmed 01/02/17] Past Medical History HEENT History: Reports: Cataract Gastrointestinal History: Reports: Colon polyp, Hemorrhoids [employer]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: Musculoskeletal History: Reports: Arthritis, Back pain, chronic, Fracture, Neck pain, chronic, Osteoarthritis Other Musculoskeletal History: na Neurological History: Reports: None Psychiatric History: Reports: Anxiety Hematologic History: Reports: B12 deficiency, Folic acid Oncologic (Cancer) History: Reports: Basal cell carcinoma Dermatologic History: Reports: Cellulitis - Infectious Disease History Infectious Disease History: Reports: Chicken pox, Measles - Past Surgical History HEENT Surgical History: Reports: Cataract surgery GI Surgical History: Reports: Appendectomy, Colonoscopy, Polypectomy Neurological Surgical History: Reports: Laminectomy Musculoskeletal Surgical History: Reports: None Oncologic Surgical History: Reports: None Dermatological Surgical History: Reports: Skin biopsy Social & Family History - Family History HEENT: Reports: Glaucoma, Macular degeneration Cardiac: Reports: Heart failure, High cholesterol, [place] Respiratory: Reports: Asthma : Reports: Renal disease/insufficiency OBGYN: Reports: Other (see below) Other OBGYN Family History: ovarian cyst Musculoskeletal: Reports: Arthritis Oncologic: Reports: Skin - Tobacco Use Smoking Status *Q: Never Smoker Years of Tobacco use: 30 Used Tobacco, but Quit: Yes Month Tobacco Last Used: 1994 Second Hand Smoke Exposure: No - Caffeine Use Caffeine Use: Reports: Coffee - Alcohol Use Days Per Week of Alcohol Use: 1 Number of Drinks Per Day: 1 Total Drinks Per Week: 1 - Recreational Drug Use Recreational Drug Use: No Review of Systems - Review of Systems Review Of Systems: See Below Constitutional: Reports: no symptoms Eyes: Reports: no symptoms Ears: Reports: no symptoms Nose: Reports: no symptoms Mouth/Throat: Reports: no symptoms Respiratory: Reports: No Symptoms Cardiovascular: Reports: no symptoms GI/Abdominal: Reports: No symptoms Genitourinary: Reports: no symptoms Musculoskeletal: Reports: other (Pt has severe pain the left knee. She feels like at times it gives out. ) Neurological: Reports: No Symptoms Trauma Exam - Physical Exam Exam: See Below Text/Narrative:: Pt arrived with severe left knee pain. She fell and landed on the knee 2 weekss ago. She had neg plain films. She is struggling to walk on the leg. She has had recent back surgery. Exam Limited By: No limitations General Appearance: Reports: alert, anxious Head: Reports: atraumatic Ears: Reports: normal TMs Nose: Reports: normal inspection Throat/Mouth: Reports: Normal inspection Neck: Reports: non-tender Respiratory Exam: Reports: no respiratory distress Extremities: Reports: other ( Left markell has less swelling than her last visit here. The knee looks like a degerative knee. This is very uncomfortable with movement. ) Course - Vital Signs Last Recorded V/S: Last Vital Signs Temp 37.4 C 01/24/17 12:19 Pulse 76 01/24/17 12:19 Resp 14 01/24/17 12:19 BP 158/67 H 01/24/17 12:19 Pulse Ox 92 L 01/24/17 12:19 - Re-Assessments/Exams Free Text/Narrative Re-Assessment/Exam: 01/24/17 13:54 A Mri of the knee was scheduled. She will be scheduled for a appt with Ortho. She has had back surgery with Dr Haynes. Departure - Departure Time of Disposition: 13:55 Disposition: Home, Self-Care 01 Condition: fair Clinical Impression: Degenerative arthritis of left knee, Contusion of left knee Forms: ED Department Discharge Care Plan Goals: rtc tomorrow for a MRI of the left knee, , appt with Ortho. -- Dr Xenia Haynes.
== END 2017-01-24 14:16 | disposition home or self-care (01) ==
LOC: JP.ED 11:48
DX: M17.12 Unilateral primary osteoarthritis, left knee (principal); S80.02XA Contusion of left knee, initial encounter; W19.XXXA Unspecified fall, initial encounter; Y92.099 Unspecified place in other non-institutional residence as the place of occurrence of the external cause
CPT/HCPCS: 99282; 99283

== ENCOUNTER 2017-12-31 07:11 | Inpatient (IN) | payer MEDICARE, BC ==
[2017-12-31] MEDS ORDERED: Rocuronium 50 MG/5 ML Vial ONE (07:14)
[2017-12-31] MEDS ORDERED: Propofol 200 MG/20 ML SDV ONE (07:14)
[2017-12-31] MEDS ORDERED: Succinylcholine 200 MG/10 ML MDV ONE (07:14)
[2017-12-31] MEDS ORDERED: Neostigmine Methylsulfate 1 MG/ML 5 ML Syringe ONE (07:14)
[2017-12-31] MEDS ORDERED: fentaNYL 250 MCG/5 ML SDV ONE (07:14)
[2017-12-31] MEDS ORDERED: Glycopyrrolate 0.2 MG/ML 5 ML MDV ONE (07:14)
[2017-12-31] MEDS ORDERED: Dexamethasone 4 MG/ML SDV ONE (07:14)
[2017-12-31] MEDS ORDERED: Ondansetron 4 MG/2 ML SDV ONE (07:14)
[2017-12-31] MEDS ORDERED: Acetaminophen 500 MG Tab PO ONE (07:30)
[2017-12-31] MEDS: Dextrose 5%-Lactated Ringers 1,000 ML IV SCH ×2 (07:33→18:18)
[2017-12-31] MEDS ORDERED: ceFAZolin 1 GM in Premix Bag 1 BAG IV ONE (08:30)
[2017-12-31] MEDS ORDERED: HYDROmorphone/Normal Saline 15 MG/30 ML PCA IV PRN (09:51)
[2017-12-31] MEDS ORDERED: Naloxone 0.4 MG/ML SDV IVPUSH PRN (09:51)
[2017-12-31] MEDS ORDERED: Naloxone 0.4 MG/ML SDV IV PRN (09:54)
[2017-12-31] MEDS ORDERED: Lactated Ringers 1,000 ML ONE (10:33)
[2017-12-31] MEDS ORDERED: tiZANidine 4 MG Tab PO PRN (13:14)
[2017-12-31] MEDS ORDERED: Nitroglycerin 0.4 MG Tab.SL SL PRN (13:16)
[2017-12-31] MEDS: ceFAZolin 1 GM in Premix Bag 1 BAG IV SCH ×2 (15:51→23:28)
[2017-12-31] MEDS: Acetaminophen 325 MG Tab PO SCH ×3 (15:51→21:41)
[2018-01-01] MEDS: Acetaminophen 325 MG Tab PO SCH ×3 (02:23→06:16)
[2018-01-01] MEDS: Dextrose 5%-Lactated Ringers 1,000 ML IV SCH (04:54)
[2018-01-01] MEDS ORDERED: Sodium Chloride 0.9% 10 ML Syringe IV PRN (07:29)
[2018-01-01] MEDS: Pantoprazole 40 MG Tab.CR PO SCH (07:35)
[2018-01-01] MEDS: ceFAZolin 1 GM in Premix Bag 1 BAG IV SCH (07:35)
[2018-01-01] MEDS ORDERED: Acetaminophen 325 MG Tab PO PRN (08:00)
[2018-01-01] MEDS: Magnesium Sulfate/Water 2 GM in Premix Bag 1 BAG IV SCH ×3 (08:36→21:26)
[2018-01-01] MEDS: Meloxicam 7.5 MG Tab PO SCH (08:38)
[2018-01-01] MEDS: FLUoxetine 20 MG Cap PO SCH (08:39)
[2018-01-01] MEDS: Acetaminophen/HYDROcodone 325-10 MG Tab PO PRN ×3 (13:55→23:21)
[2018-01-02] MEDS: Magnesium Sulfate/Water 2 GM in Premix Bag 1 BAG IV SCH ×4 (04:05→20:14)
[2018-01-02] MEDS: Pantoprazole 40 MG Tab.CR PO SCH (08:20)
--- NOTE | 2018-01-02 09:22 | PN ---
DATE OF SERVICE: 01/02/2018 SUBJECTIVE: Marisela is postop day #2. She states her pain is controlled. Calcium this morning was 7.5, phosphorus was 5, magnesium was 2.6. She has been up ambulating. Vital signs have been stable. Oral intake 1640 and urine output was 2150. BRANDON drain put out 40 mL of a dark red drainage. REVIEW OF SYSTEMS: Remainder of review of systems negative for any pertinent positives and negatives. OBJECTIVE: GENERAL: Marisela Velazquez is an 87-year-old female. She is alert and orientated. VITAL SIGNS: TPR 97.1, 71, 16. Blood pressure 166/80. HEENT: Negative. NECK: Supple. Steri-Strips are intact. Incision looks good. BRANDON drain as noted above. Voice is strong. HEART: Regular rate and rhythm. LUNGS: Clear. EXTREMITIES: Without peripheral edema. ASSESSMENT: Total thyroidectomy, 12/31/2017. PLAN: 1. Check labs in the a.m. 2. Discontinue magnesium lab in the a.m. 3. Continue to watch for any tingling around perioral area. 4. We will evaluate p.r.n. or in the a.m. Plan discharge in the a.m. Rebekah Carrera PA-C /[id number]
[2018-01-02] MEDS: Meloxicam 7.5 MG Tab PO SCH (10:00)
[2018-01-02] MEDS: FLUoxetine 20 MG Cap PO SCH (10:00)
[2018-01-02] MEDS: Acetaminophen/HYDROcodone 325-10 MG Tab PO PRN (15:30)
[2018-01-03] MEDS: Acetaminophen/HYDROcodone 325-10 MG Tab PO PRN ×3 (02:11→21:06)
[2018-01-03] MEDS: Magnesium Sulfate/Water 2 GM in Premix Bag 1 BAG IV SCH (02:20)
[2018-01-03] MEDS ORDERED: Calcium Carbonate 500 MG Tab.Chew PO STA (06:15)
[2018-01-03] MEDS: Pantoprazole 40 MG Tab.CR PO SCH (07:21)
[2018-01-03] MEDS ORDERED: Calcium Carbonate 500 MG Tab.Chew PO SCH (08:00)
[2018-01-03] MEDS: FLUoxetine 20 MG Cap PO SCH (08:12)
[2018-01-03] MEDS: Meloxicam 7.5 MG Tab PO SCH (08:12)
[2018-01-03] MEDS: Potassium Chloride 20 MEQ Tab.ER PO SCH ×3 (09:20→17:15)
--- NOTE | 2018-01-03 09:22 | PN ---
DATE OF SERVICE: 01/03/2018 SUBJECTIVE: Kriss calcium this morning was 6.3, hemoglobin 9.6. She is asymptomatic with her calcium being that low. REVIEW OF SYSTEMS: Remainder of review of systems negative for any pertinent positives and negatives. OBJECTIVE: GENERAL: Marisela Velazquez is an 87-year-old female. She is alert and orientated. VITAL SIGNS: TPR 97.7, 72, 18. Blood pressure 149/69. Her BRANDON drain did put out a total of 10 mL over the past 24 hours and prior to that 40 mL. HEENT: Negative. NECK: Incision looks good. BRANDON drain intact. HEART: Regular rate and rhythm. LUNGS: Clear. ASSESSMENT: Total thyroidectomy, 12/31/2017. PLAN: 1. Give Tums 4 chewable every 4 hours. 2. KCl 20 mEq 3 times today with meals and will be discharged on magnesium oxide 400 mg b.i.d. 3. We will evaluate p.r.n. or in the a.m. Rebekah Carrera PA-C /[id number]
[2018-01-03] MEDS: Calcium Carbonate 500 MG Tab.Chew PO SCH ×4 (09:23→21:07)
--- NOTE | 2018-01-03 11:16 | PN ---
DATE OF SERVICE: 01/01/2018 The patient has been afebrile with stable vital signs. No major problems have been noted overnight. Her calcium level was 7.7 this morning, it is somewhat low, but asymptomatic at this point. Magnesium is also somewhat low at 1.5, and we will supplement that today. Otherwise, we will saline lock the IV, go up to a regular diet and institute oral medication. Her incision was examined with takedown of the dressing and looks good. The BRANDON drain is serous in terms of output. Ernesto Haynes MD /[id number]
[2018-01-04] MEDS: Calcium Carbonate 500 MG Tab.Chew PO SCH ×3 (01:26→09:05)
[2018-01-04] MEDS: Potassium Chloride 20 MEQ Tab.ER PO SCH ×2 (08:45→13:05)
[2018-01-04] MEDS: Meloxicam 7.5 MG Tab PO SCH (08:45)
[2018-01-04] MEDS: Pantoprazole 40 MG Tab.CR PO SCH (08:45)
[2018-01-04] MEDS: FLUoxetine 20 MG Cap PO SCH (08:46)
--- NOTE | 2018-01-04 09:05 | DISCH ---
ADMISSION DIAGNOSES: Thyroid nodule; thyroid carcinoma; essential hypertension; degenerative arthritis, left knee; lumbar stenosis and lumbar radiculopathy. DISCHARGE DIAGNOSIS: Total thyroidectomy 12/31/2017. HISTORY: Marisela Velazquez is an 87-year-old female with a thyroid nodule. After preoperative evaluation and discussion of risks and possible complications, she wished to proceed with surgical procedure. HOSPITAL COURSE: Marisela had her surgery on 12/31/2017. She had no operative complications. On postop day #1, her dressing was removed. She was started on oral diet and oral pain medication. On postop day 3, her calcium was 6.3. She was asymptomatic. She was started on Tums four at a time orally four times a day. On 01/04/2018, her potassium was 6.5. She remained asymptomatic and was able to be discharged to home without any complications. OBJECTIVE: GENERAL: Marisela Velazquez is an 87-year-old female, alert and orientated. VITAL SIGNS: Her height is 5 feet 6.5 inches, weight is 140 pounds. TPR is 97, 751, 16. Blood pressure is 158/92, it had been running 149/83, 155/78, 161/73. HEENT: Negative. NECK: The incision looks good. It is Steri-Strip'd. 4 x 4 over BRANDON drain site. HEART: Regular rate and rhythm. LUNGS: Clear. EXTREMITIES: Without peripheral edema. DISPOSITION: Discharged to home. CONDITION: Stable and improving. FOLLOWUP APPOINTMENT: Ernesto Haynes MD, on 12/30/2017 at 11 a.m. She is to check a BMP, mag, phos in clinic lab at 10:[address] Haynes. NEW PRESCRIPTIONS: 1. Tylenol 650 mg q.4 hours p.r.n. pain. 2. Tums 4 times a day. 3. Magnesium oxide 400 mg twice daily. She is to resume all of her home medications includin. Alendronate 70 mg weekly, calcium carbonate 500 mg oral daily. 2. Vitamin B12 at 1000 mg oral daily. 3. Fluoxetine 20 mg oral daily. 4. Hydrocodone one tablet 3 times a day p.r.n. pain. 5. Meloxicam 7.5 mg oral daily. 6. Multivitamin one daily. 7. Nitroglycerin 0.4 mg sublingual p.r.n. chest pain. 8. Omeprazole 20 mg daily. 9. Zanaflex 4 mg at bedtime. DISCHARGE DIET: Usual diet as tolerated. Drink 8 to 10 glasses of water a day. ACTIVITY: As tolerated. No lifting greater than 10 pounds for 6 weeks. Driving: Do not drive for 2 weeks. Shower/bathing: May shower. Notify provider if any fever, increased pain, numbness or tingling around the lips, swelling, redness, nausea, or vomiting. Keep site clean and dry.
[2018-01-04 11:16] VITALS: BP 134/67
--- NOTE | 2018-01-07 11:42 | OR ---
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 OPERATIVE PROCEDURE: Total thyroidectomy with left central lymph node dissection ([id number]). ANESTHESIA: General. INFECTIOUS WASTE TECHNICIAN: Rebekah Carrera PA-C and ANDREW Landeros3. INDICATION FOR PROCEDURE: This is an 87-year-old female presenting after a PET scan revealed an area of high uptake in a nodule of the left thyroid lobe. Fine-needle aspiration of this was consistent with papillary carcinoma. The patient will undergo a total thyroidectomy at this time. Potential risks of the procedure including bleeding, infection, injury to recurrent laryngeal nerves or parathyroid glands with resultant complications outlined with the patient were reviewed, along with possible local or distant tumor recurrence, as well as possible need for additional treatment such as I-151 treatment postoperatively were all gone over, along with the remote possibility of cardiopulmonary, septic, or hemorrhagic complications leading to , and the patient wishes to proceed. DETAILS OF PROCEDURE: The patient was taken to the operating room and placed in a supine position. After general endotracheal anesthesia was induced, the upper chest and neck areas were prepped and draped, a transverse collar incision was made 2 fingerbreadths above the sternal notch and carried down through the skin and subcutaneous tissue to the platysma layers. Subplatysmal flaps were then raised superiorly and inferiorly, and the midline strap muscles were then sequentially retracted off of the thyroid capsule bilaterally. There is no fixation of the thyroid to the surrounding soft tissues. The patient did have the obvious palpable firm mass in the upper aspect of the left thyroid lobe. Beginning on the left side then, the inferior middle thyroid veins were divided with Harmonic scalpel. This allowed medial mobilization of the gland. The upper pole vessels were then encircled and taken with Harmonic Scalpel as well, and then the branches of the inferior thyroid artery were then taken immediately flush with the thyroid capsule, thus reflecting the parathyroid glands away from the capsule and preserving the blood supply. The isthmus was then divided with Harmonic scalpel as well, and the remaining attachments of the left thyroid lobe to the trachea were sequentially taken down. Care was then taken to visualize and preserve the recurrent laryngeal nerve. This specimen was associated with 2 small nodules within the central compartment of lymph nodes, suggestive of possible metastatic disease. The lymph nodes in this area were then excised and sent as a separate specimen. Attention was then taken to the right side, a similar dissection was completed, no lymphadenopathy was noted on this side, and at that point, no further problems were noted. A 7 flat Jose Martin-Barron drain was then placed through a stab wound on the right side and draped across the areas of dissection. The midline strap muscles were then approximated with a 3-0 Vicryl stitch, the platysma layers with 4-0 Vicryl stitch, and the skin with a 5- 0 Vicryl subcuticular stitch. Dressing was applied. The patient was taken to the recovery room in satisfactory condition. Physician patient care nursing assistant, Rebekah Carrera, played an essential role in assisting in this case, helping to position the patient, retract structures as needed, as well as suturing and cutting sutures as indicated. Her presence improved the patient's safety and decreased operative time. Ernesto Haynes MD /[id number]
== END 2018-01-04 11:50 | disposition home or self-care (01) | DRG 626 ==
LOC: JP.MS 07:11 → JP.SDS 07:11 → JP.2SS 12:05 → EDSTATUS 14:30
PROVIDERS: ADMIT Surgery; ATTEND Surgery
PROC: 0GTH0ZZ Resection of Right Thyroid Gland Lobe, Open Approach (ICD-10-PCS; principal; 2017-12-31)
PROC: 0GTJ0ZZ Resection of Thyroid Gland Isthmus, Open Approach (ICD-10-PCS; 2017-12-31)
PROC: 0GTG0ZZ Resection of Left Thyroid Gland Lobe, Open Approach (ICD-10-PCS; 2017-12-31)
PROC: 07T20ZZ Resection of Left Neck Lymphatic, Open Approach (ICD-10-PCS; 2017-12-31)
DX: C73 Malignant neoplasm of thyroid gland (principal); F11.20 Opioid dependence, uncomplicated; I10 Essential (primary) hypertension; M19.90 Unspecified osteoarthritis, unspecified site; M48.061 Spinal stenosis, lumbar region without neurogenic claudication; M54.16 Radiculopathy, lumbar region; E83.42 Hypomagnesemia; E83.51 Hypocalcemia; G89.29 Other chronic pain; Z85.828 Personal history of other malignant neoplasm of skin; M05.9 Rheumatoid arthritis with rheumatoid factor, unspecified; F32.9 Major depressive disorder, single episode, unspecified; Z88.6 Allergy status to analgesic agent; Z88.0 Allergy status to penicillin
CPT/HCPCS: 36415; 80048; 83735; 84100; 88305; 88307; 94762; A9270-GY; J0330; J0690; J1100; J1170; J2405; J2704; J2710; J3010; J3475; J7042; J7120

== ENCOUNTER 2018-01-27 13:35 | Emergency (ER) | payer MEDICARE, BC ==
[2018-01-27 14:59] VITALS: BP 178/92
--- NOTE | 2018-01-27 15:15 | EDM.PDOC ---
ED HPI GENERAL MEDICAL PROBLEM - General Chief Complaint: Skin Complaint Stated Complaint: INFECTED AT SURGICAL SITE ON NECK? Time Seen by Provider: 01/27/18 14:55 Source of Information: Reports: Patient, Old Records History Limitations: Reports: No Limitations - History of Present Illness INITIAL COMMENTS - FREE TEXT/NARRATIVE: 87 yo female has a thyroidectomy in December of this yr. here with Dr. Haynes. Yesterday she noted some redness to the lateral aspect of this surgical neck wound/scar. Now today it is a little worse. She denies a fever. She has no appt for follow up for a couple weeks. Onset: Gradual Onset Date: 01/26/18 Duration: Hour(s):, Getting Worse Location: Reports: Neck Quality: Reports: Dull Severity: Mild Improves with: Reports: None Worsens with: Reports: Other (? time) Context: Reports: Other (See HPI) Associated Symptoms: Reports: No Other Symptoms - Related Data Allergies Allergy/AdvReac Type Severity Reaction Status Date / Time Penicillins Allergy Rash Verified 12/31/17 07:27 aspirin AdvReac Nausea and Verified 12/31/17 07:27 Vomiting Home Meds: Home Meds FLUoxetine HCl [Fluoxetine HCl] 20 mg PO DAILY 12/24/13 [History] Hydrocodone/Acetaminophen [Hydrocodon-Acetaminophn 10-325] 1 tab PO TID PRN 09/27 [History] tiZANidine [Zanaflex] 4 mg PO BEDTIME PRN 09/27/15 [History] Calcium Carbonate [Calcium] 500 mg PO DAILY 03/08/16 [History] Multivitamin [Multi-Vitamin Daily] 1 each PO DAILY 03/08/16 [History] Alendronate Sodium [Alendronate] 70 mg PO WEEKLY 10/25/16 [History] Cyanocobalamin (Vitamin B-12) [B-12] 1,000 mcg PO DAILY 12/07/17 [History] Meloxicam 7.5 mg PO DAILY 12/07/17 [History] Nitroglycerin [Nitrostat] 0.4 mg SL .Q5MIN PRN 12/07/17 [History] Omeprazole 20 mg PO DAILY 12/07/17 [History] Acetaminophen [Tylenol] 650 mg PO Q4H PRN tablet 01/04/18 [Rx] Magnesium Oxide 400 mg PO BID #100 tab 01/04/18 [Rx] Past Medical History HEENT History: Reports: Cataract Cardiovascular History: Reports: CAD, [place] Respiratory History: Reports: Other (See Below) Other Respiratory History: spot on lung-monitoring Gastrointestinal History: Reports: Colon Polyp, Hemorrhoids Genitourinary History: Reports: None [employer]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: Musculoskeletal History: Reports: Arthritis, Back Pain, Chronic, Fracture, Neck Pain, Chronic, Osteoarthritis Other Musculoskeletal History: na Neurological History: Reports: None Psychiatric History: Reports: Anxiety Hematologic History: Reports: B12 Deficiency, Folic Acid Immunologic History: Reports: None Oncologic (Cancer) History: Reports: Basal Cell Carcinoma, Thyroid Dermatologic History: Reports: Cellulitis - Infectious Disease History Infectious Disease History: Reports: Chicken Pox, Measles - Past Surgical History Head Surgeries/Procedures: Reports: None HEENT Surgical History: Reports: Cataract Surgery Cardiovascular Surgical History: Reports: None Respiratory Surgical History: Reports: Other (See Below) GI Surgical History: Reports: Appendectomy, Colonoscopy, Polypectomy Female Surgical History: Reports: D&C Endocrine Surgical History: Reports: Thyroid Biopsy, Thyroidectomy Neurological Surgical History: Reports: Laminectomy Musculoskeletal Surgical History: Reports: None Oncologic Surgical History: Reports: None Dermatological Surgical History: Reports: Skin Biopsy Social & Family History - Family History Family Medical History: Noncontributory HEENT: Reports: Glaucoma, Macular Degeneration Cardiac: Reports: Heart Failure, High Cholesterol, [place] Respiratory: Reports: Asthma : Reports: Renal Disease/Insufficiency OBGYN: Reports: Other (See Below) Other OBGYN Family History: ovarian cyst Musculoskeletal: Reports: Arthritis Oncologic: Reports: Skin - Tobacco Use Smoking Status *Q: Never Smoker Years of Tobacco use: 30 Used Tobacco, but Quit: No Month/Year Tobacco Last Used: 1994 Second Hand Smoke Exposure: No - Caffeine Use Caffeine Use: Reports: Coffee - Alcohol Use Days Per Week of Alcohol Use: 1 Number of Drinks Per Day: 0 Total Drinks Per Week: 0 - Recreational Drug Use Recreational Drug Use: No ED ROS GENERAL - Review of Systems Review Of Systems: See Below Constitutional: Reports: No Symptoms HEENT: Reports: No Symptoms Respiratory: Reports: No Symptoms Cardiovascular: Reports: No Symptoms GI/Abdominal: Reports: No Symptoms : Reports: No Symptoms Musculoskeletal: Reports: No Symptoms Skin: Reports: Erythema Neurological: Reports: No Symptoms ED EXAM, SKIN/RASH Exam: See Below Exam Limited By: No Limitations General Appearance: Alert, WD/WN, No Apparent Distress Eye Exam: Bilateral Eye: Normal Inspection Ears: Normal External Exam, Normal Canal, Hearing Grossly Normal Nose: Normal Inspection, Normal Mucosa, No Blood Throat/Mouth: Normal Inspection, Normal Lips, Normal Oropharynx, Normal Voice, No Airway Compromise Head: Atraumatic, Normocephalic Neck: Other (Horizontal surgical scar pretty well healed. The L lateral edge of this scar is indurated and reddened. No drainage. Slightly warm to touch. ) Respiratory/Chest: No Respiratory Distress, Lungs Clear, Normal Breath Sounds Cardiovascular: Regular Rate, Rhythm Neurological: Alert, Oriented, CN II-XII Intact, Normal Cognition Psychiatric: Normal Affect, Normal Mood Skin: Warm, Dry, Intact, No Rash, Erythema (see neck exam) Location, Skin: Neck Characteristics: Erythematous Associated features: Warmth, Tenderness Lymphatic: No Adenopathy Course - Vital Signs Last Recorded V/S: Last Vital Signs Temp 36.5 C 01/27/18 14:58 Pulse 72 01/27/18 14:58 Resp 18 01/27/18 14:58 BP 178/92 H 01/27/18 14:58 Pulse Ox 98 01/27/18 14:58 Departure - Departure Time of Disposition: 15:13 Disposition: Home, Self-Care 01 Condition: Good Clinical Impression: Cellulitis Qualifiers: Site of cellulitis: neck Qualified Code(s): L03.221 - Cellulitis of neck - Discharge Information Referrals: Leo Valverde MD [Primary Care Provider] -
== END 2018-01-27 15:32 | disposition home or self-care (01) ==
LOC: JP.ED 13:35
DX: L03.221 Cellulitis of neck (principal); I25.10 Atherosclerotic heart disease of native coronary artery without angina pectoris; I25.2 Old myocardial infarction; Z79.899 Other long term (current) drug therapy; Z90.49 Acquired absence of other specified parts of digestive tract
CPT/HCPCS: 99283

== ENCOUNTER 2019-11-14 21:23 | Emergency (ER) | payer MEDICARE, BC ==
--- NOTE | 2019-11-14 21:54 | EDM.PDOC ---
<Abraham Mckeon - Last Filed: 11/15/19 06:22> ED HPI GENERAL MEDICAL PROBLEM - General Chief Complaint: Back Pain or Injury Stated Complaint: medical Time Seen by Provider: 11/14/19 21:33 Source of Information: Reports: Patient, EMS History Limitations: Reports: No Limitations - History of Present Illness INITIAL COMMENTS - FREE TEXT/NARRATIVE: Patient presents by ambulance from her home because of ongoing low back pain which has been managed satisfactorily with 2 hydrocodone tablets per day for quite a while. The exact sequence of prescribers is hard to follow but she used to see someone locally in [place] but then was referred to a pain clinic in [place] on [facility]. She has had what sounds like epidural or facet joint injections by an anesthesiologist from [facility] but he does not prescribe long-term pain medication. She has been on 2 hydrocodone tablets daily for quite some time. She ran out on , 13 November. She contacted a pain clinic doctor in [place] but was told that he could not prescribe any medication until he had actually seen her so I'm not certain if this is a new doctor or she had not been seen for her initial consultation yet. Her pain over the last 36 hours has progressed and been quite severe. She denies any new injuries or falls. She moves around home with a wheeled walker for comfort and safety. She was hoping she could get by just taking Tylenol for her back but in this last day or so her pain has worsened significantly. She spent much of today in bed because it was more comfortable lying down than when she was up on her feet. Eventually she couldn't tolerate the pain any longer and called 911. Onset: Gradual Duration: Day(s): (2) Location: Reports: Back Quality: Reports: Dull Severity: Severe Improves with: Reports: Rest Worsens with: Reports: Movement Associated Symptoms: Reports: No Other Symptoms Treatments RETOUCHER: Reports: Acetaminophen Lower Back Pain Score (Numeric/FACES): 5 - Related Data Allergies Allergy/AdvReac Type Severity Reaction Status Date / Time gabapentin Allergy Diarrhea Verified 11/14/19 23:23 Penicillins Allergy Rash Verified 12/31/17 07:27 aspirin AdvReac Nausea and Verified 12/31/17 07:27 Vomiting Home Meds: Home Meds FLUoxetine HCl [Fluoxetine HCl] 20 mg PO DAILY 12/24/13 [History] Hydrocodone/Acetaminophen [Hydrocodon-Acetaminophn 10-325] 1 tab PO BID PRN 09/27 [History] tiZANidine [Zanaflex] 4 mg PO BEDTIME PRN 09/27/15 [History] Calcium Carbonate [Calcium] 500 mg PO DAILY 03/08/16 [History] Multivitamin [Multi-Vitamin Daily] 1 each PO DAILY 03/08/16 [History] Alendronate Sodium [Alendronate] 70 mg PO WEEKLY 10/25/16 [History] Cyanocobalamin (Vitamin B-12) [B-12] 1,000 mcg PO DAILY 12/07/17 [History] Meloxicam 7.5 mg PO DAILY 12/07/17 [History] Nitroglycerin [Nitrostat] 0.4 mg SL .Q5MIN PRN 12/07/17 [History] Omeprazole 20 mg PO DAILY 12/07/17 [History] Acetaminophen [Tylenol] 650 mg PO Q4H PRN tablet 01/04/18 [Rx] Magnesium Oxide 400 mg PO BID #100 tab 01/04/18 [Rx] Oxybutynin 5 mg PO DAILY 11/14/19 [History] Pregabalin 50 mg PO BID 11/14/19 [History] Past Medical History HEENT History: Reports: Cataract Cardiovascular History: Reports: CAD, [place] Respiratory History: Reports: Other (See Below) Other Respiratory History: spot on lung-monitoring Gastrointestinal History: Reports: Colon Polyp, Hemorrhoids Genitourinary History: Reports: None DATE PULLER History: Reports: Musculoskeletal History: Reports: Arthritis, Back Pain, Chronic, Fracture, Neck Pain, Chronic, Osteoarthritis Other Musculoskeletal History: na Neurological History: Reports: None Psychiatric History: Reports: Anxiety Hematologic History: Reports: B12 Deficiency, Folic Acid Immunologic History: Reports: None Oncologic (Cancer) History: Reports: Basal Cell Carcinoma, Thyroid Dermatologic History: Reports: Cellulitis - Infectious Disease History Infectious Disease History: Reports: Chicken Pox, Measles - Past Surgical History Head Surgeries/Procedures: Reports: None HEENT Surgical History: Reports: Cataract Surgery Cardiovascular Surgical History: Reports: None Respiratory Surgical History: Reports: Other (See Below) GI Surgical History: Reports: Appendectomy, Colonoscopy, Polypectomy Female Surgical History: Reports: D&C Endocrine Surgical History: Reports: Thyroid Biopsy, Thyroidectomy Neurological Surgical History: Reports: Laminectomy Musculoskeletal Surgical History: Reports: None Oncologic Surgical History: Reports: None Dermatological Surgical History: Reports: Skin Biopsy Social & Family History - Family History Family Medical History: Noncontributory HEENT: Reports: Glaucoma, Macular Degeneration Cardiac: Reports: Heart Failure, High Cholesterol, [place] Respiratory: Reports: Asthma : Reports: Renal Disease/Insufficiency OBGYN: Reports: Other (See Below) Other OBGYN Family History: ovarian cyst Musculoskeletal: Reports: Arthritis Oncologic: Reports: Skin - Caffeine Use Caffeine Use: Reports: Coffee ED ROS GENERAL - Review of Systems Review Of Systems: See Below Constitutional: Reports: No Symptoms GI/Abdominal: Reports: Constipation, Diarrhea (She has had softer stools recently because her MiraLAX and other stool softener medication seem to have finally helped her.), Other (She has painful external hemorrhoids. They are not as bothersome as when she was constipated.) Musculoskeletal: Reports: Back Pain (Low lumbar and posterior pelvis pain, long- term.) ED EXAM,LOWER BACK PAIN/INJURY - Physical Exam Exam: See Below Exam Limited By: No Limitations General Appearance: Alert, Mild Distress Back Exam: Vertebral Tenderness (There is pain along most of the extent of the lumbar vertebrae region) Course - Vital Signs Last Recorded V/S: Last Vital Signs Temp 97.0 F 11/14/19 21:44 Pulse 58 L 11/14/19 21:44 Resp 18 11/14/19 21:44 BP 197/94 H 11/14/19 21:44 Pulse Ox 96 11/14/19 21:44 - Orders/Labs/Meds Meds: Medications Discontinued Medications Generic Name Dose Route Start Last Admin Trade Name Conner PRN Reason Stop Dose Admin Hydrocodone Bitart/Acetaminophen 1 tab 11/15/19 03:37 11/15/19 03:49 [place] 325-5 Mg PO 11/15/19 03:38 1 tab ONETIME ONE Administration Fentanyl 50 mcg 11/15/19 09:13 Sublimaze IM 11/15/19 09:14 ONETIME ONE - Re-Assessments/Exams Free Text/Narrative Re-Assessment/Exam: 11/14/19 22:24 I will review a lumbar spine x-ray series to make sure she has not sustained a new compression fracture or similar bony injury. If that looks all right, we can prescribe several days of hydrocodone to use until she is able to contact her prescribing physician. 11/14/19 23:20 X-rays reveal extensive degenerative change in the lumbar spine but no acute fractures. At this time, she is not pain free but reasonably comfortable and does not believe she needs any hydrocodone. There is no one who can come to pick her up in the middle of the night. She will have to rest here until daylight hours. We can provide her with a limited prescription of hydrocodone but she will need to recheck with her prescribers in [place] next week. 11/15/19 06:22 Recheck of patient at 0607 hrs. shows her to be resting comfortably. 11/15/19 07:41 Patient will have a ride home at 0930 hours today. Her case was endorsed to Dr. Belle at 0741 hours. Departure - Departure Time of Disposition: 07:42 Disposition: Home, Self-Care 01 Condition: Good Clinical Impression: Back pain Qualifiers: Back pain location: low back pain Chronicity: chronic Back pain laterality: midline Sciatica presence: without sciatica Qualified Code(s): M54.5 - Low back pain - Discharge Information Instructions: Acute Back Pain, Adult Referrals: PCP,None [Primary Care Provider] - Forms: ED Department Discharge Additional Instructions: Contact your prescribing physician team for the hydrocodone. Continue current hydrocodone twice daily as done previously. Return to ER if feeling worse in anyway. Sepsis Event Note - Focused Exam Vital Signs: Vital Signs Temp Pulse Resp BP Pulse Ox 11/14/19 21:44 97.0 F 58 L 18 197/94 H 96 11/14/19 21:35 97.0 F 58 L 18 197/94 H 96 Date Exam was Performed: 11/15/19 Time Exam was Performed: 06:22 <Leo Belle - Last Filed: 11/15/19 09:15> Course - Re-Assessments/Exams Free Text/Narrative Re-Assessment/Exam: 11/15/19 09:14 Patient care turned over from Dr. Mckeon pending disposition. About 15 minutes before her ride arrived she started having increased pain and spasms. She was given 50 mcg of IM fentanyl and was discharged. Sepsis Event Note - Focused Exam Date Exam was Performed: 11/15/19 Time Exam was Performed: 09:14
--- NOTE | 2019-11-14 23:18 | CRLCR ---
Indication: Acute and chronic low back pain Technique: Three views of the lumbar spine Comparison: Lumbar spine four views 10/02/2016 Findings: There is diffuse osseous demineralization, limiting assessment. There are multilevel degenerative changes, slightly worsened since 2016. There is mild anterolisthesis of L3 on L4, new since prior. Laminectomy and posterior fusion changes are noted at L4-L5 and L5-S1. No acute fracture is appreciated. Atherosclerotic calcifications are seen in the abdominal aorta. Impression: 1. No acute displaced fracture appreciated. 2. Multilevel degenerative changes, worsened since 2016. Dictated by Dorothy Mcdonnell MD @ Nov 14 2019 11:16PM Signed by Dr. Dorothy Mcdonnell @ Nov 14 2019 11:16PM
[2019-11-15] MEDS ORDERED: Acetaminophen/HYDROcodone 325-5 MG Tab PO ONE (03:37)
[2019-11-15] MEDS ORDERED: fentaNYL 100 MCG/2 ML SDV IM ONE (09:13)
[2019-11-15 10:03] VITALS: BP 184/92; PULSE 56
== END 2019-11-15 10:03 | disposition home or self-care (01) ==
LOC: JP.ED 21:23
DX: M54.5 Low back pain (principal); G89.29 Other chronic pain; I25.10 Atherosclerotic heart disease of native coronary artery without angina pectoris; I25.2 Old myocardial infarction; M19.90 Unspecified osteoarthritis, unspecified site; F41.9 Anxiety disorder, unspecified; Z88.0 Allergy status to penicillin; Z88.8 Allergy status to other drugs, medicaments and biological substances; Z79.899 Other long term (current) drug therapy
CPT/HCPCS: 72100; 96372; 99283; 99284; A9270; J3010